=== PATIENT | female | born 2000 | race Caucasian/White ===

== ENCOUNTER 2024-09-26 14:25 | Emergency (ER) | payer OTHER, SELFPAY ==
--- OUTSIDE RECORDS SUMMARY | 2024-09-26 14:33 | XMS_ITS | Data Portability ---
Author Organization [employer] , [facility] Address [address] [place] [address] Care Team Providers Care Barometers Calibrator Name Role Phone [facility] [employer] Operator Assessment Encounter Date Assessment Date Assessment LastModified by Organization Details LastModified Time 05/02/2023 05/02/2023 Treatment for trich/Chlamydia- took stopped 2 weeks ago. Appointment 04/11- has had transportation issues. Not available 05/02/2023 17:03:04 05/31/2023 05/31/2023 Pt is here for a JAIME appointment. She is taking vitamins. She has no complaints or questions. Denies vaginal bleeding, abdominal cramps, N/V, contractions, and LOF. Denies headache, vision changes, swelling of hands or face, and epigastric pain. Reports feeling movement. Discussed Movement Counts. Discussed PTL and precautions given. There are no identifiable risk factors for pre-term labor. Reminded pt that I do not delivery babies. Recommended pt see a Delivery provider next visit. [email or web address] Not available 05/31/2023 16:30:03 Plan of Treatment Reminders Order Date Submit Date Provider Last Modified By Organization Details Last Modified Time Details Appointments None recorded. Lab parvovirus B19 igg+igm Ab, serum 2022 023 LUIS [facility], [address] [facility], [address], [place], [address], 00:21:36 torch antibody panel, serum 2022 023 [email or web address] [facility], [address], [address], [place], [address], 3 16:26:16 hhv-6 (human herpesvirus 6) antibody panel, serum 2022 023 LOR[place] [employer] [facility], [address], [address], [place], [address], 3 00:21:36 test, urine 2022 023 [facility], [address], [place], [address], 3 14:15:36 pap, LB 2022 023 [facility] [employer] [facility], [address] [place], [address], 3 17:14:47 unlisted lab - Pap reflex hold 2022 023 [facility], [address] [place], [address], 3 15:39:15 Referral maternal & medicine [facility], [address], [address], [place], [address], 3 16:59:14 Procedures None recorded. Surgeries None recorded. Imaging US, obstetric, limited 2022 023 [facility] [address], [place], [address], 3 09:16:01 US, doppler, umbilical artery velocimetry 2022 023 kbrLocated within [facility], [address], [place], [address], 3 16:51:04 US, obstetric, biophysical profile 2022 023 tam [facility], [address], [place], [address], 3 16:34:47 Medication Orders Depo-Hydraulic Jack Mechanic a 150 mg/mL intramuscul ar suspension 2022 023 [id number] [facility], [address] , [place], [address], 14:15:28 Patient TargetsNo targets recorded. Patient Instructions Encounter Date Encounter Id Patient Instructions Last Modified By Organization Details Last Modified Time 05/02/2023 [id number] learning about screening for gestational diabetes Not available 05/02/2023 19:48:47 08/25/2023 [id number] Care at Home With Your Baby: Care Instructions Not available 08/25/2023 12:43:17 control after counseling Not available 08/25/2023 12:43:17 learning about control Not available 08/25/2023 12:43:17 Reason for Referral Maternal & Medicine Re ferral for growth restriction Transfer of Care- IUGR Referring Physician: Viviana Kruse, CRISIS INTERVENTION COUNSELOR, Encounter Date: 05/31/2023 Results Created Date Observation Date Name Description Value Unit Range Abnormal Flag Note LastModifiedBy Organization Detail LastModifiedTime 05/15/2005/18/2023 GLUCO SE, GESTA HAYDEE L SCREE N (50G) -135 CUTOF F glucose, gestational screen (50g)-135 cutoff 133 mg/dL <135 normal Not Available [facility] [address], [place], [address], 05/19/2023 00:21:35 05/15/20 23 05/18/2023 PARVO VIRUS B19 ANTIB ODIES (IGG, IGM) parvovirus B19 antibody (IgG) 0.2 normal REFER ENCE RANGE : <0.9 INTER PRETI VE CRITE ANNAMARIE: <0.9 Negat tanja 0.9 - 1.1 Equiv ocal >1.1 Posit tajna IgG persi sts for years and provi pedro life- long immun ity. To diagn ose curre nt infec tion, consi princess Parvo virus B19 DNA, PCR. Not Available [address], [address], 05/19/2023 00:21:36 05/15/2005/18/2023 PARVO VIRUS B19 ANTIB ODIES (IGG, IGM) parvovirus B19 antibody (IgM) 0.1 normal REFER ENCE RANGE : <0.9 INTER PRETI VE CRITE ANNAMARIE: <0.9 Negat tanja 0.9 - 1.1 Equiv ocal >1.1 Posit tanja Resul ts from any one IgM assay shoul d not be used as a sole deter minan t of a curre nt or recen t infec tion. Becau se IgM tests can yield false posit tanja resul ts and low level s of IgM antib job may persi st for month s post infec tion, relia nce on a singl e test resul t could be misle ading . If an acute infec tion is suspe cted, consi princess obtai meagan a new speci men and submi t for both IgG and IgM testi ng in two or more weeks . To diagn ose curre nt infec tion, consi princess Parvo virus B19 DNA, PCR. Not Available [address], [address], 05/19/2023 00:21:36 05/15/2005/18/2023 HERPE SVIRU S 6 ANTIB ODIES (IGG, IGM) herpesvirus 6 Ab (IgG) 1:40 titer high Not Available [address] [place], [address], 05/19/2023 00:21:36 05/15/2005/18/2023 HERPE SVIRU S 6 ANTIB ODIES (IGG, IGM) herpesvirus 6 Ab (IgM) <1:20 titer normal Not Available [facility] [employer] [facility] [address] [place], [address], 05/19/2023 00:21:36 05/15/2005/18/2023 HERPE SVIRU S 6 ANTIB ODIES (IGG, IGM) interpretati on PAST INFECT ION normal REFER ENCE RANGE : IgG <1:10 IgM <1:20 Human Herpe sviru s 6 (HHV- 6) infec ts T-lym phocy brooke, and has been ident ified as an etiol ogic agent of exant amelie subit um. Rises in antib job titer s to HHV-6 have been detec jose angel durin g infec tion with other virus es. In seroe pidem iolog y studi es of the preva lence of expos ure using serum scree meagan dilut ions of 1:10, the detec tion of IgG antib job in a mid-l william popul ation appro aches 100%. Due to this high preva lence of HHV-6 antib job, corre latio ns of singl e IgG titer s with speci fic disea ses are of littl e clini leroy value . Evide nce of acute infec tion or react ivati on of HHV-6 is demon strat ed by a signi fican t rise or seroc onver stefania of IgG and IgM titer s. This test was devel oped and its ovidio tical perfo rmanc e jane cteri stics have been deter mined by [facility]. It has not been clear ed or appro ry by FDA. This assay has been valid ated pursu ant to the CLIA regul ation s and is used for clini leroy purpo ses. Not Available [facility] [employer] [facility] [address] [place], [address], 05/19/2023 00:21:36 08/25/2008/29/2023 THINP REP TIS PAP clinical information: normal None given Not Available [employer] [facility] [address] [place], [address], 08/29/2023 17:14:46 08/25/20 23 08/29/2023 THINP REP TIS PAP LMP: normal NONE GIVEN Not Available [address], [address], 08/29/2023 17:14:46 08/25/20 23 08/29/2023 THINP REP TIS PAP prev. Pap: normal NONE GIVEN Not Available [address], [address], 08/29/2023 17:14:46 08/25/2008/29/2023 THINP REP TIS PAP prev. BX: normal NONE GIVEN Not Available [address], [address], 08/29/2023 17:14:46 08/25/20 23 08/29/2023 THINP REP TIS PAP source: normal None given Not Available [address], [address], 08/29/2023 17:14:46 08/25/2008/29/2023 THINP REP TIS PAP statement of adequacy: normal Satis facto ry for evalu ation . Endoc ervic al/tr ansfo rmati on zone compo nent prese nt. Age and/o r menst rual statu s not provi ded Not Available [address], [address], 08/29/2023 17:14:46 08/25/20 23 08/29/2023 THINP REP TIS PAP interpretati on/result: normal Cytol ogy Resul ts: Negat tanja for intra epith elial lesio n or natalie garcia . Not Available [address], [address], 08/29/2023 17:14:46 08/25/20 23 08/29/2023 THINP REP TIS PAP comment: normal This Pap test has been evalu ated with compu sanchez techn ology . Not Available [facility] [employer] [facility] [address] [address] [place], [address], 08/29/2023 17:14:46 08/25/20 23 08/29/2023 THINP REP TIS PAP cytotechnolo gist: normal YARELI, CT( CP) CT scree meagan locat ion: [place] [address] [address] [place] [address] Not Available [facility] [address] [address] [place], [address], 08/29/2023 17:14:46 08/25/2008/29/2023 THINP REP TIS PAP comment EXPLA NATOR Y NOTE: The Pap is a scree meagan test for cervi leroy cance r. It is not a diagn ostic test and is subje ct to false negat tanja and false posit tanja resul ts. It is most relia ble when a satis facto ry sampl e, regul mary obtai errol, is submi tted with relev ant clini leroy findi ngs and histo ry, and when the Pap resul t is evalu ated along with histo bar and curre nt clini leroy infor matio n. Not Available [address], [place], [address], 08/29/2023 17:14:46 08/25/20 23 08/25/2023 pregn josesito test, urine HCG negati ve Not Available [facility] [address] [facility], [place], [address], 08/25/2023 13:23:22 03/30/20 23 03/30/2023 US, obste tric No observ ation record ed. [address], [place], [address], 03/31/2023 19:59:14 05/31/20 US, obste tric, bioph ysica l profi le No observ ation record ed. [email or web address] [facility] [address] [facility], [place], [address], 05/31/2023 16:34:50 06/01/20 23 05/31/2023 US, obste tric, limit ed No observ ation record ed. [email or web address] [address], [place], [address], 06/01/2023 14:14:28 Result Notes None recorded. Problems Name Problem SNOMED Code Status Onset Date Resolution Date Notes Provider Name and Address Organization Details Recorded Time Dispropo rtion between fetus and pelvis Completed 201602/19/2021 Back pain, in pregnanc y; Progress : Stable Added By: Minnie Cool Add to Current Problems : NO ProblemS tatus: Resolve Not Available [facility] 2 20:48:05 Gestatio n period, 16 weeks [id number] Completed 202005/18/2021 16 weeks gestatio n of pregnanc y; Progress : Stable Added By: Marlo Herrmann Add to Current Problems : NO ProblemS tatus: Resolve Not Available [facility] 2 20:48:00 Excessiv e growth affectin g manageme nt of mother 44097414 Completed 201609/02/2017 Large for Dates; Location : None Progress : Stable Added By: Kyle Bailey Add to Current Problems : YES ProblemS tatus: Resolve Not Available [facility] 2 20:48:01 Antenata l ultrasou nd finding 328131265 Completed 202002/19/2021 Encounte r for pregnanc y test, result unknown; Progress : Stable Added By: Carey Jacobs Add to Current Problems : NO ProblemS tatus: Resolve Not Available [facility] 2 20:48:00 Clinical finding Completed 201602/19/2021 state, incident al; Progress : Stable Added By: Isaiah Moody Add to Current Problems : NO ProblemS tatus: Resolve Not Available [facility] 2 20:48:02 Generali zed abdomina l pain 029657840 Completed 201607/14/2017 Abdomina l cramping ; Location : None Progress : Stable Added By: Isaiah Moody Add to Current Problems : NO ProblemS tatus: Resolve Generali zed abdomina l pain; Progress : Stable Added By: Isaiah Moody Add to Current Problems : NO ProblemS tatus: Resolve Not Available [facility] 2 20:48:03 Gestatio n period, 12 weeks 66515476 Completed 202004/14/2021 12 weeks gestatio n of pregnanc y; Progress : Stable Added By: Rodrigo Ayala Add to Current Problems : NO ProblemS tatus: Resolve Not Available [facility] 2 20:48:04 Situatio n with explicit context Completed 202004/14/2021 Supervis ion of pregnanc y with other poor reproduc tive or obstetri c history, second trimeste r; Progress : Stable Added By: Marlo Herrmann Add to Current Problems : NO ProblemS tatus: Resolve Not Available [facility] 2 20:48:01 Indicati on for care AND/OR interven tion in labor AND/OR delivery Completed 201508/20/2016 Other specifie d indicati ons for care related to labor and delivery , antepart um conditio n or complica tion; Location : None Progress : Stable Added By: Taylor Coronado Add to Current Problems : YES ProblemS tatus: Resolve Not Available [facility] 2 20:48:00 Delivery finding Completed 201508/20/2016 Other specifie d complica tions of labor and delivery ; Progress : Stable Added By: Taylor Coronado Add to Current Problems : NO ProblemS tatus: Resolve Not Available [facility] 2 20:48:04 Poor growth affectin g manageme nt 610452593 Completed 201508/20/2016 Small for dates; Location : None Progress : Stable Added By: Taylor Coronado Add to Current Problems : YES ProblemS tatus: Resolve Not Available [facility] 2 20:48:01 Uterine size for dates discrepa ncy Completed 201509/02/2017 Uterine size-akira e discrepa ncy, third trimeste r; Progress : Stable Added By: Kyle Bailey Add to Current Problems : NO ProblemS tatus: Resolve Not Available [facility] 20:48:01 Pregnanc y 60564633 Completed 202011/26/2022 Emmie mishra, [facility] [employer] 3 12:22:07 Low lying placenta 532733932 Completed resolved 09/21 Carey Jacobs CNM [facility] [place], [address] , [facility] 3 17:54:08 Marginal insertio n of umbilica l cord 71649129 Completed 09/21 growth at 41.3%, EFW 3336 grams, 7-6; VERONICA 15.5cm Carey Jacobs CNM [address] [place] [address], [address] , [facility] 3 17:54:08 Antenata l care: poor antenata l attender 215187984 Completed O+/RI Has not been seen since 27 weeks Carey Jacobs CNM [address] [place] [address], [address] , [facility] 3 17:54:08 Past pregnanc y history of gestatio nal diabetes mellitus 678574701 Completed HgbA1c 4.8 on intake. GTT 123 Carey Jacobs CNM [address] [place], [address] , [facility] 3 17:54:08 Pregnanc y 93930907 Completed 202208/25/2023 Emmie mishra, [facility] 3 12:22:06 Insuffic ient care [id number] 09 Completed 2022 [facility] ed to come regularl y educated about risk factors. Emmie mishra, [facility] 3 12:22:04 growth restrict ion 06607279 Completed 5%ile on 26 wk US with suspecte d club foot, MFM case referral done Emmie mishra, [facility] 3 12:22:04 Trichomo nal vulvovag initis 39299217 Completed Emmie mishra, [facility] 3 12:22:04 Chlamydi al infectio n 071270819 Completed will need LINDSAY followin g tx Emmie mishra, [facility] 3 12:22:04 Pregnanc y with other medical conditio n Completed 201602/19/2021 Incident al pregnanc y; Location : None Severity : Moderate Progress : Stable Added By: Isaiah Moody Add to Current Problems : YES ProblemS tatus: Current Incident al pregnanc y; Severity : Moderate Progress : Stable Added By: Isaiah Moody Add to Current Problems : NO ProblemS tatus: Resolve Not Available [facility] 1 01:27:09 Gestatio n period, 8 weeks 30974313 Completed 202004/14/2021 8 weeks gestatio n of pregnanc y; Progress : Stable Added By: Liz Manuel Add to Current Problems : NO ProblemS tatus: Resolve Not Available [facility] 2 20:48:04 Problem Notes None recorded. Procedures Surgical History Date Name Laterality Status Provider Name and Address Organization Details Recorded Time 10/31/19 24 Suture/Staple removal cancelled Merna Solis MD [address] [place] [address], [address], [facility] [employer] [facility] 10/30/2023 19:23:25 10/18/19 24 Removal of fallopian tube completed Merna Solis MD [address] [place] [address], [address], [facility] [facility] 10/30/2023 19:24:25 08/25/20 23 Depo Provera Injection completed Merna Solis MD [address] [place] [address], [address], [facility] 08/25/2023 14:15:30 08/25/20 Date of Last Pap Smear completed Merna Solis MD [address] [facility], [place], [address], [facility] 08/30/2023 10:28:12 Appendectomy completed Karenomer Das [facility] 09/21/2021 15:08:58 Imaging Results Imaging Date Name Status LastModified by Organiz ation Details LastModified Time 03/30/2023 US, obstetric completed [address], [place], [address], 03/31/2023 19:59:14 05/31/2023 US, obstetric, biophysical profile completed [email or web address] [facility] [address] [place], [address], 05/31/2023 16:34:50 05/31/2023 US, obstetric, limited completed bnotzke [address], [place], [address], 06/01/2023 14:14:28 Procedure Notes None recorded. Medical Equipment None Reported. Allergies Allergen ID Allergen Name Allergen Category Reaction Reaction Severity Criticality Documentation Date Start Date Code Code System Note Provider Name and Address Organization Details Recorded Time 925724 coconut extract food,medi cation Not available Not available Not available 08/25/2023 96355 48 RxNorm Emmie mishra, [facility] IV 12:22:41 Medications Name Sig Start Date Stop Date Status Note LastModified by Organization Details LastModified Time doxycycli ne hyclate 100 mg capsule active Not Available Not Available Not Available clindamyc in HCl 300 mg capsule 12/20 completed Not Available Not Available Not Available ibuprofen 800 mg tablet active Not Available Not Available Not Available Procardia XL 30 mg tablet,ex tended release Take 1 tablet(s ) by mouth daily 11/01 completed Procardi a XL 30mg Tablets, Extended Release RxNorm: 005003 Allow Substitu tion: True Refill Denied: No Not Available Not Available Not Available hydrocodo ne 5 mg-acetam inophen 325 mg tablet active Not Available Not Available Not Available metronida zole 0.75 % (37.5 mg/5 gram) vaginal gel 12/20 completed Not Available Not Available Not Available metronida zole 500 mg tablet Take 1 tablet every 12 hours by oral route. 08/25 completed Not Available Not Available Not Available Reglan 10 mg tablet 1 tabs PO QID (before each meal & HS) 07/09 completed Reglan 10mg Tablet RxNorm: 594555 Allow Substitu tion: True Refill Denied: No Not Available Not Available Not Available Macrobid 100 mg capsule Take 1 capsule( s) by mouth bid for 10 days 08/13 completed Macrobid 100mg Capsules RxNorm: 699463 Allow Substitu tion: True Refill Denied: No Not Available Not Available Not Available Vitamin tablet Take 1 tablet by mouth daily. 01/25 completed Multivit britton Tablet Allow Substitu tion: True Refill Denied: No Not Available Not Available Not Available Zofran 4 mg tablet take 1 -2 tabs po every 8 hours as needed for nausea 05/19 completed Zofran 4 mg oral tablet RxNorm: 187727 Allow Substitu tion: True Refill Denied: No Edited by: Marlo Art ) on 05/19/20 Stopped by: Marlo Art ) on 05/19/20 21 Not Available Not Available Not Available oxycodone -acetamin ophen 5 mg-325 mg tablet 09/21 completed Not Available Not Available Not Available Mapap (acetamin ophen) 500 mg capsule 08/25 completed Not Available Not Available Not Available ferrous sulfate 325 mg (65 mg iron) tablet 08/25 completed Not Available Not Available Not Available docusate sodium 100 mg capsule active Not Available Not Available Not Available pyridoxin e (vitamin B6) 50 mg tablet Take 1 tablet every day by oral route for 30 days. 02/20 completed Not Available Not Available Not Available ibuprofen 600 mg tablet 08/25 completed Not Available Not Available Not Available ondansetr on 4 mg disintegr ating tablet Place 1 tablet every 6-8 hours by translin gual route as needed for 5 days. 02/20 completed Not Available Not Available Not Available medroxypr ogesteron e 150 mg/mL intramusc ular suspensio n Inject 1 mL every 3 months by intramus cular route. active Not Available Not Available No t Available naproxen 500 mg tablet 12/20 completed Not Available Not Available Not Available azithromy grisel 1 gram oral packet Take 1 packet every day by oral route. 03/30 completed Not Available Not Available Not Available 28 mg-800 mcg tablet take once per day 08/25 completed 28-800 mg-mcg oral tablet Allow Substitu tion: True Refill Denied: No Edited by: Jose Elias Smith) on 03/17/20 21 Stopped by: Jose Elias Smith) on Not Available Not Available Not Available Ebonie (PF) 275 mg/1.1 mL subcutane ous auto-inje ctor inject 1.1 millilit ers (275 mg) by subcutan eous route once weekly begin between weeks 16 and 20; continue to week 37 of gestatio n or delivery 09/21 completed [place] (PF) 275 mg/1.1 mL subcutan eous Auto-Inj cielo RxNorm: 7409307 Allow Substitu tion: True Refill Denied: No Edited by: Vneus Cabello) on 02/26/20 21 Stopped by: Venus Cabello) on Not Available Not Available Not Available M- Plus 27 mg iron-1 mg tablet 09/21 completed Not Available Not Available Not Available Vitals Date Recorded Body height Body mass index (BMI) Systolic blood pressure Diastolic blood pressure Provider Name and Address Organization Details Last Updated DateTime 03/30/2023 154.94 cm 33.3 kg/m2 110 mm[Hg] 70 mm[Hg] Janis Banks [place] [facility] 03/30/2023 11:41:20 Date Recorded Body weight Provider Name an d Address Organization Details Last Updated DateTime 03/30/2023 77887.64091 g Zara Griffin MD [facility] [place], [address], [facility] 03/30/2023 12:24:47 Date Recorded Body height Body mass index (BMI) Body weight Body temperature Systolic blood pressure Diastolic blood pressure Provider Name and Address Organization Details Last Updated DateTime 154.94 cm 33.3 kg/m2 39672.2 6 g 98.6 [degF] 120 mm[Hg] 72 mm[Hg] Isa Anuel [facility] 13:02:07 Date Recorded Body height Body mass index (BMI) Body temperature Systolic blood pressure Diastolic blood pressure Provider Name and Address Organization Details Last Updated DateTime 04/07/2023 154.94 cm 33.7 kg/m2 97.4 [degF] 112 mm[Hg] 64 mm[Hg] Анна Trujillo [place] [facility] 11:35:10 Date Recorded Body weight Provider Name an d Address Organization Details Last Updated DateTime 04/07/2023 43185.464732 g Merna Solis MD [facility] [place], [address], [place] [facility] 04/07/2023 11:47:17 Date Recorded Body height Body mass index (BMI) Systolic blood pressure Diastolic blood pressure Provider Name and Address Organization Details Last Updated DateTime 05/02/2023 154.94 cm 33.3 kg/m2 110 mm[Hg] 60 mm[Hg] Janis Banks [place] [facility] 05/02/2023 16:55:04 Date Recorded Body weight Provider Name an d Address Organization Details Last Updated DateTime 05/02/2023 99206.81805 g EFREM HANKS [facility] [place], [address], [place] [facility] 05/02/2023 17:10:12 Date Recorded Body height Body mass index (BMI) Body weight Body temperature Systolic blood pressure Diastolic blood pressure Provider Name and Address Organization Details Last Updated DateTime 3 154.94 cm 33.8 kg/m2 59409.0 3423 g 97 [degF] 112 mm[Hg] 60 mm[Hg] Darian Gonzalez [employer] [facility] 3 16:19:23 Date Recorded Body height Body mass index (BMI) Body weight Systolic blood pressure Diastolic blood pressure Provider Name and Address Organization Details Last Updated DateTime 08/25/2023 154.94 cm 33.4 kg/m2 90043.85 g 122 mm[Hg] 72 mm[Hg] Emmie Hall [employer] [facility] 3 12:29:20 Social History Question Answer Notes LastModified by [employer] Details LastModified Time Tobacco Smoking Status Current Every Day Smoker Karen mishra, [employer] [facility] 09/21/2021 15:08:34 What Is Your Level Of Alcohol Consumption? None Information not available 09/21/2021 Are You Blind Or Do You Have Difficulty Seeing? No Information not available 03/16/2023 Are You Deaf Or Do You Have Serious Difficulty Hearing? No [email or web address] Information not available 03/16/2023 What Type Of Diet Are You Following? REGULAR Information not available 03/30/2023 How Many Children Do You Have? 4 Information not available 03/30/2023 What Is Your Relationship Status? Single Information not available 09/21/2021 Are You Sexually Active? Yes Information not available 09/21/2021 How Much Tobacco Do You Smoke? 0.25 PPD Information not available 03/30/2023 Do You Use Any Illicit Or Recreational Drugs? No [email or web address] Information not available 03/16/2023 Do You Or Have You Ever Used Any Other Forms Of Tobacco Or Nicotine? No [email or web address] Information not available 03/16/2023 Sex: Female Functional Status Question Answer Note LastModified by [email or web address] Details LastModified Time What is your exercise level? Occasional Information not available 03/30/2023 Mental Status None recorded. Family History Relationship Description Onset Age of this Age Resolved Age Notes LastModified by Organization Details LastModified Time Father No current problems or disability Not available 04/2021 15:08:17 Mother No current problems or disability Not available 04/2021 15:08:17 Medical History Condition Response Other Cancer N High Blood Pressure N Colon Cancer N Cytomegalovirus N Hyperthyroidism N MRSA N Blood Transfusion N Herpes (HSV) N Breast Cancer N Lung Cancer N Depression N Hypothyroidism N Incontinence N Panic Attacks N Neurological Disorder N Deep Vein Thrombosis N Anxiety Disorder N Autoimmune disease N Arthritis N Shingles N Tuberculosis/Positive PPD N Polycystic Ovarian Syndrome N Cervical Cancer N Chlamydia N Hematuria N Stroke N Varicosities N Seasonal allergies N Crohn's Disease N Alzheimer's/Dementia N COPD/Emphysema N Endometriosis N HPV/Genital Warts N IBS (Irritable Bowel Syndrome) N History of Abnormal Pap N High Cholesterol N Liver Disease N Kidney Infection N Fibromyalgia N Ulcer N Kidney Disease N HIV N Gallbladder disease N Von Willebrand disease N Sickle Cell Disease/Trait N ADD/ADHD N Eating Disorder N Diabetes Mellitus (non-insulin dependent ) N Anemia N Ovarian Problems N Multiple Sclerosis N Gonorrhea N Frequent Urinary Tract infections N Osteopenia N Headaches/migraines N GERD (reflux) N Ovarian Cancer N Diabetes (insulin dependent) N Seizures/Epilepsy N Fibroids N Asthma N Heart Attack N Endometrial Cancer N Lupus N Rubella N Blood Clotting Disorder N Bipolar Disorder N Diabetes Mellitus (during ) N Ulcerative Colitis N Hepatitis N Heart Disease N Pulmonary Embolism N RPR N Chicken Pox N Osteoporosis N Gynecological History Statement/Question Response Date of Last Colonoscopy Date of last HPV Date of LMP 08/16/2023 Most Recent Bone Density HPV Vaccine N Date of Last Pap Smear 08/25/2023 Most Recent Mammogram Current Control Method Sterilizati on Age at Menarche 12 Obstetrics History GPAL:G 5 P 3 1 0 4 Type Value Full Term 3 Premature 1 Living 4 Total 5 Past Encounters Encounter ID Performer Location Encounter Start Date Encounter Closed Date Diagnosis/Indication Diagnosis SNOMED-CT Code Diagnosis ICD10 Code [id number] Dariana Johnston CNM [facility] [address] [place] [address] 09/21/2021 14:51:18 10/06/2021 13:50:22 Marginal insertion of umbilical cord 66276363 O43.129 Insufficie nt care 5761426626 109 O09.33 Low lying placenta 58380 2007 O44.43 [id number] JOSE BELL MD [facility] h [address] [place] [address] 12/20/2022 13:44:10 12/21/2022 07:03:10 test positive 163992367 Z32.01 Gestation period, 12 weeks 12789526 Z3A.12 Maternal t obacco use in 9059091104 73677 O99.331 screening 2437 72987 Z36.0 Carrier de tection, molecular genetics 5284781 Z14.8 Morning sickness 0048321 6 O21.9 [id number] Zara Griffin MD [facility] h [address] [place] [address] 02/20/2023 14:02:59 02/20/2023 15:21:16 Routine care 168125681 Z34.81 Alpha-feto protein test - 212767270 Z36.1 Venereal d isease screening 075954377 Z11.3 [id number] Zara Griffin MD [facility] h [address] [place] [address] 03/30/2023 11:20:11 03/30/2023 17:16:17 Gestation period, 26 weeks 24738090 Z3A.26 grow th restriction 70193439 O36.5999 [id number] Merna Solis MD [facility] [address] [place] [address] 04/07/2023 11:24:18 04/07/2023 15:07:41 growth restriction 58136072 O36.5931 Gestation period, 27 weeks 65610416 Z3A.27 Routine an tenatal care 858794922 Z34.83 [id number] EFREM ROME [facility] [address] [place] [address] 05/02/2023 16:41:10 05/03/2023 09:24:24 Routine care 971816974 Z34.83 grow th restriction 84245685 O36.5931 Gestation period, 30 weeks 19020317 Z3A.30 [id number] JASPREET HOBBS-BC [facility] [address] [place] [address] 05/31/2023 15:04:26 06/01/2023 13:03:36 growth restriction 34146979 O36.5999 High risk 4720 0007 O09.93 Gestation period, 28 weeks 20954171 Z3A.28 [id number] Merna Solis MD [facility] [address] [place] [address] 08/25/2023 12:14:16 08/25/2023 15:56:58 Screening for malignant neoplasm of cervix 205623827 Z12.4 Surveillan ce of contraception 876812888 Z30.40 Depression screening 171 974158 Z13.31 state 1349998 1 Z39.2 Initiation of depot contraception done 0374125466 31283 Z30.013 Health Concerns Section Related Observation LastModified by Organization Detai ls LastModified Time None Recorded Concern Status LastModified by Organization Details LastModified Time None Recorded Advance Directives Directive None Recorded Payers Encounter Date Sequence Insurance Name Policy Number Policy Keith Covered Member ID Keith Member ID Guarantor Name 03/30/2023 1 [employer] [place] 2020 (MEDICAID REPLACEMENT - HMO) Rebeca Fernandez [id number] Rebeca Fernandez 04/07/2023 1 [employer] [place] REPLAC[place] - HMO) Rebeca Fernandez [id number] Rebeca Fernandez 05/02/2023 1 [employer] [place]AC[place] - HMO) Rebeca Fernandez [id number] Rebeca Fernandez 05/31/2023 1 [employer] [place] REPLAC[place] - HMO) Rebeca Fernandez [id number] Rebeca Fernandez 08/25/2023 1 [employer] BETTER [facility] OF [facility] ON OR AFTER 09/15/2020 (MEDICAID REPLACEMENT - HMO) Rebecaboris [place] Jim [id number] Rebecaboris [place] Jim Notes Date Note Type Note Provider Name and Address Organization Details Recorded Time 03/30/2023 text/html Rebeca is her e today for a routine OB visit. She is currently at 26.2 weeks gestation. She has no complaints or questions. She is taking vitamins. She has felt movement. She denies the presence of vaginal bleed, leaking fluid, abdominal cramps, nausea, vomiting. Zara Griffin MD [address] [place] [address], [phone], [employer] IV 03/30/2023 12:27:30 04/07/2023 text/html Rebeca is her e today for a routine OB visit. She is currently at 27.3_ weeks gestation. She has no complaints or questions. She is taking vitamins. She has felt movement. She denies the presence of vaginal bleed, leaking fluid, abdominal cramps, nausea, vomiting. Merna Solis MD [address] [place] [address], [phone], [employer] IV 04/07/2023 21:27:39 05/02/2023 text/html Rebeca is her e today for a routine OB visit. She is currently at 31.0 weeks gestation. She has no complaints or questions. She is taking vitamins. She has felt movement. She denies the presence of vaginal bleed, leaking fluid, abdominal cramps, nausea, vomiting. EFREM ROME [address] [place] [address], [phone], [employer] IV 05/02/2023 19:48:50 05/31/2023 text/html OB ProblemReport ed bypatient.Associated Symptoms:no abdominal pain; no cramping; no contractions; normal movement; no bleeding; no ROM; no vaginal discharge; no vaginal/vulvar itching or irritation; no edema; no visual changes; no headache; no dizziness; no breathlessness Pt here for JAIME in third trimester. +FM, denies VB, LOF. Denies PARSON, vision changes, RUQ pain, contractions DIONNA HOBBS [address] [place], [address], [employer] 06/01/2023 13:19:21 08/25/2023 text/html VisitReported bypatient.Onset/Timin g:date of delivery: (06-22-23) Quality: Context:feeding choice: bottle Associated Symptoms:no abnormal bleeding; no vaginal discharge Contraception Plan:permanent sterilization Tubal Consent Signed Merna Solis MD [facility] [place], [address], [facility] [employer] 08/25/2023 14:16:44 OBGyn Episode Ob Episode Information Episode Created Date Number of Fetuses Patient Bloodtype Patient rh Status Prepregnancy Weight lbs Domestic Partner Domestic Partner Phone Father Name Veterinary Livestock Inspector Status 09/21/20 21 1 O Positive CLOSED Fetus Data First Name Last Name Admitted to NICU Weight (g) Sex Living Outcome Pediatric Complications Fetus ID Race Codes Race Delivery Type 3090.09 55 F true Full Term [id number] Problems Problem Notes Problem Name Start Date End Date Resolution Snomed Code Not e Low lying placenta 853500177 r esolved 09/21 Marginal insertion of umbilical cord 42235770 09/21 growth a t 41.3%, EFW 3336 grams, 7-6; VERONICA 15.5cm care: poor attender 793194486 O+/RI Has not been seen since 27 weeks Past history of gestational diabetes mellitus 213736336 HgbA1c 4.8 on intake. GTT 123 Todd Calculation TODD Calculation Method Initial Todd Date Initial Exam Date Initial Exam Provider Initial Ultrasound Date Last Menstrual Period Date Ultra Sound Weeks Gestation Conception by IVF Embryo Age at Transfer Date of Transfer 09/28/20 21 09/21/20 21 02/19/2021 8 Eighteen To Twenty Week Todd Update Ultra Sound Date Fundal Height At Umbil Quickening Date Ultra Sound Latest Weeks Gestation Final Todd Confirmed By Final Todd Confirmed Date Final Todd Date Ultra Sound Latest Days Gestation 0 0 Pre- Flowsheet Flowsheet Date 09/21/2021 Odell Score Blood Edema Fundus Height Fundus Units Glucose Ketones Leukocytes Nitrite Labor Signs Protein Cervic Dilation Cervic Effacement Cervic Station none 39 Type Weight in lbs Pre/Post Dialysis Refused Weight 182.643416576269 BP Diastolic BP Location Tested BP Systolic BP Type 78 132 Fetus Heart Rate Present A 149 Fetus Movement A Yes Comments Menstrual History Last Menstrual Date Menses Monthly On Bcp Conception Prior Menses Frequency Hcg Plus Date Menarche Onset Age Genetic Screening And Infection History Question Response Note Recent Travel History Outside of Country false Cystic Fibrosis false Any Other Genetic History false Hi Disease false Other Infection History false Thalassemia (Tristanian, Armenian, Mediterranean, Or Background): MCV < 80 false Patient Or Baby's Father Had A Child With Defects Not Listed Above false Live With Someone With TB Or Exposed To TB false Patient's Age Will Be 35 Years Or Older At Estim ated Date of Delivery false Recurrent Loss, Or A Stillbirth false Hemoglobinopathy Or Carrier false Patient Or Partner Has History Of Genital Herpes false Intellectual Disability/Autism false Maternal Metabolic Disorder (eg, Type 1 Diabetes , PKU) false History of Hepatitis false Shahriar-Sachs (eg, Sikh, Cajun, Kuwaiti-Lebanese) f alse History Of STD, Gonorrhea, Chlamydia, HPV, Syphi lis false Prior GBS-infected child false History of HIV false Personal or Family History o f Neural Tube Defect (Meningomyelocele, Spina Bifida, Or Anencephaly) false Hemophilia Or Other Blood Disorders false Mental Retardation/Autism false Franklin's Chorea false If Yes, Was Person Tested For Fragile X? false Other Inherited Genetic Or Chromosomal Disorder false If Yes, Agent(s) And Strength/Dosage false Sickle Cell Disease Or Trait () false Personal or Family History of Congenital Heart D efect false Rash Or Viral Illness Since Last Menstrual Perio d false Muscular Dystrophy false Medications (including Suppl ements, Vitamins, Herbs, OTC Drugs), Illicit/Recreational Drugs, Alcohol false Other Structural Defect false Down Syndrome false Delivery Information Delivery Date Delivery Type Labor Anesthesia Weeks Gestation Incision Type Labor Labor Length Hrs Delivered By Post Complications Tubal Sterilization Discharge Date Comments 1 Sponta neous 39.3 Discharge Information Feeding Method Contraceptive Method Maternal HG B and HCT Levels Ob Episode Information Episode Created Date Number of Fetuses Patient Bloodtype Patient rh Status Prepregnancy Weight lbs Domestic Partner Domestic Partner Phone Father Name Veterinary Livestock Inspector Status 12/31/19 22 1 CLOSED Fetus Data First Name Last Name Admitted to NICU Weight (g) Sex Living Outcome Pediatric Complications Fetus ID Race Codes Race Delivery Type 1927.76 6 M [id number] Todd Calculation TODD Calculation Method Initial Todd Date Initial Exam Date Initial Exam Provider Initial Ultrasound Date Last Menstrual Period Date Ultra Sound Weeks Gestation Conception by IVF Embryo Age at Transfer Date of Transfer 0 Eighteen To Twenty Week Todd Update Ultra Sound Date Fundal Height At Umbil Quickening Date Ultra Sound Latest Weeks Gestation Final Todd Confirmed By Final Todd Confirmed Date Final Todd Date Ultra Sound Latest Days Gestation 0 0 Menstrual History Last Menstrual Date Menses Monthly On Bcp Conception Prior Menses Frequency Hcg Plus Date Menarche Onset Age Delivery Information Delivery Date Delivery Type Labor Anesthesia Weeks Gestation Incision Type Labor Labor Length Hrs Delivered By Post Complications Tubal Sterilization Discharge Date Comments 6 33 true Discharge Information Feeding Method Contraceptive Method Maternal HG B and HCT Levels Ob Episode Information Episode Created Date Number of Fetuses Patient Bloodtype Patient rh Status Prepregnancy Weight lbs Domestic Partner Domestic Partner Phone Father Name Veterinary Livestock Inspector Status 12/31/19 22 1 CLOSED Fetus Data First Name Last Name Admitted to NICU Weight (g) Sex Living Outcome Pediatric Complications Fetus ID Race Codes Race Delivery Type 2919.99 85 F [id number] Todd Calculation TODD Calculation Method Initial Todd Date Initial Exam Date Initial Exam Provider Initial Ultrasound Date Last Menstrual Period Date Ultra Sound Weeks Gestation Conception by IVF Embryo Age at Transfer Date of Transfer 0 Eighteen To Twenty Week Todd Update Ultra Sound Date Fundal Height At Umbil Quickening Date Ultra Sound Latest Weeks Gestation Final Todd Confirmed By Final Todd Confirmed Date Final Todd Date Ultra Sound Latest Days Gestation 0 0 Menstrual History Last Menstrual Date Menses Monthly On Bcp Conception Prior Menses Frequency Hcg Plus Date Menarche Onset Age Delivery Information Delivery Date Delivery Type Labor Anesthesia Weeks Gestation Incision Type Labor Labor Length Hrs Delivered By Post Complications Tubal Sterilization Discharge Date Comments 7 39 false Discharge Information Feeding Method Contraceptive Method Maternal HG B and HCT Levels Ob Episode Information Episode Created Date Number of Fetuses Patient Bloodtype Patient rh Status Prepregnancy Weight lbs Domestic Partner Domestic Partner Phone Father Name Veterinary Livestock Inspector Status 12/31/19 22 1 CLOSED Fetus Data First Name Last Name Admitted to NICU Weight (g) Sex Living Outcome Pediatric Complications Fetus ID Race Codes Race Delivery Type 2267.96 M [id number] Todd Calculation TODD Calculation Method Initial Todd Date Initial Exam Date Initial Exam Provider Initial Ultrasound Date Last Menstrual Period Date Ultra Sound Weeks Gestation Conception by IVF Embryo Age at Transfer Date of Transfer 0 Eighteen To Twenty Week Todd Update Ultra Sound Date Fundal Height At Umbil Quickening Date Ultra Sound Latest Weeks Gestation Final Todd Confirmed By Final Todd Confirmed Date Final Todd Date Ultra Sound Latest Days Gestation 0 0 Menstrual History Last Menstrual Date Menses Monthly On Bcp Conception Prior Menses Frequency Hcg Plus Date Menarche Onset Age Delivery Information Delivery Date Delivery Type Labor Anesthesia Weeks Gestation Incision Type Labor Labor Length Hrs Delivered By Post Complications Tubal Sterilization Discharge Date Comments 8 None 40 false 18 IOL Discharge Information Feeding Method Contraceptive Method Maternal HG B and HCT Levels Ob Episode Information Episode Created Date Number of Fetuses Patient Bloodtype Patient rh Status Prepregnancy Weight lbs Domestic Partner Domestic Partner Phone Father Name Veterinary Livestock Inspector Status 02/04/20 23 1 O Positive CLOSED Fetus Data First Name Last Name Admitted to NICU Weight (g) Sex Living Outcome Pediatric Complications Fetus ID Race Codes Race Delivery Type Nena 2608.15 4 F [id number] Problems Problem Notes Problem Name Start Date End Date Resolution Snomed Code Not e Insufficient care 02/20/2023 [id number] encouraged to come regularly educated about risk factors. Trichomonal vulvovaginitis 52310762 Chlamydial infection 864635457 will need LINDSAY following tx growth restriction 79881844 5%ile on 26 wk US with suspected club foot, MFM case referral done Todd Calculation TODD Calculation Method Initial Todd Date Initial Exam Date Initial Exam Provider Initial Ultrasound Date Last Menstrual Period Date Ultra Sound Weeks Gestation Conception by IVF Embryo Age at Transfer Date of Transfer 07/04/20 23 02/04/20 23 12/20/2022 12 Eighteen To Twenty Week Todd Update Ultra Sound Date Fundal Height At Umbil Quickening Date Ultra Sound Latest Weeks Gestation Final Todd Confirmed By Final Todd Confirmed Date Final Todd Date Ultra Sound Latest Days Gestation 0 0 Pre- Flowsheet Flowsheet Date 02/20/2023 Odell Score Blood Edema Fundus Height Fundus Units Glucose Ketones Leukocytes Nitrite Labor Signs Protein Cervic Dilation Cervic Effacement Cervic Station 21 none neg Type Weight in lbs Pre/Post Dialysis Refused With clothes 179.883201006375 BP Diastolic BP Location Tested BP Systolic BP Type 64 112 sitting Fetus Heart Rate Present A 138 Fetus Movement Comments Initial OB Flowsheet Date 03/30/2023 Odell Score Blood Edema Fundus Height Fundus Units Glucose Ketones Leukocytes Nitrite Labor Signs Protein Cervic Dilation Cervic Effacement Cervic Station none 24 cm Type Weight in lbs Pre/Post Dialysis Refused With clothes 176.219715810280 BP Diastolic BP Location Tested BP Systolic BP Type 70 110 Fetus Heart Rate Present A 143 Fetus Movement A Yes Comments Reports good movement, no Leakage of fluids no vaginal bleeding. labor precautions given. FM counts discussed. F/u in L&D if experiencing decreased movement, leaking fluid, 4 or more contractions in 1 hour not relieved by rest and fluids, or regular uterine contractions increasing in frequency and/or intensity.need referral to MFM for IUGR at 26 week case sent, IUGR blood work sent, [place] test negativeI strongly suggested her to quit cigarette and eat healthy choices. 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 Will need NST BPP /cord doppler weekly at 28 weeks. Flowsheet Date 04/07/2023 Odell Score Blood Edema Fundus Height Fundus Units Glucose Ketones Leukocytes Nitrite Labor Signs Protein Cervic Dilation Cervic Effacement Cervic Station none none Type Weight in lbs Pre/Post Dialysis Refused With clothes 178.237218936573 BP Diastolic BP Location Tested BP Systolic BP Type 64 L arm 112 sitting Fetus Heart Rate Present A 135 Fetus Movement A Yes Comments Discussed u/s findings of IU GR, possible clubbed foot. Patient has a follow up with MFM next week. She will need to return in 2 weeks for 3rd trimester labs. She is too early today. Encouraged smoking cessation. Has not yet completed treatment for trich and chlamydia. Flowsheet Date 05/02/2023 Odell Score Blood Edema Fundus Height Fundus Units Glucose Ketones Leukocytes Nitrite Labor Signs Protein Cervic Dilation Cervic Effacement Cervic Station none 28.5 cm none Type Weight in lbs Pre/Post Dialysis Refused With clothes 176.556529096025 BP Diastolic BP Location Tested BP Systolic BP Type 60 110 Fetus Heart Rate Present A 144 Present Fetus Movement A Yes Comments No OB complaints today. Lizett ent states that she has been having transportation issues and has not seen MFM yet. Has missed last 2 appointments on 04/14 & 04/21. Is scheduled with them on 05/11. Pt is working on getting [employer] to help with transportation. Patient's appointment was late for 1 hr gtt and 28 week labs, patient will return Monday or this week to complete labs. Stressed importance of coming back for 3rd trimester labs, pt voices understanding. Flowsheet Date 05/31/2023 Odell Score Blood Edema Fundus Height Fundus Units Glucose Ketones Leukocytes Nitrite Labor Signs Protein Cervic Dilation Cervic Effacement Cervic Station none none neg Type Weight in lbs Pre/Post Dialysis Refused With clothes 179.541741833682 BP Diastolic BP Location Tested BP Systolic BP Type 60 112 sitting Fetus Heart Rate Present A 142 Present Fetus Movement A Yes Comments Pt has not been going to MFM appointments. Discussed importance and encouraged follow up with MFM. Pt thought this was located in [facility]- she will call them and make an appointment. BPP 05/23, dopplers WNL, growth 3%tile, VERONICA 12.42. Pt passed 1 hour gct. I do not see the rest of her 28w labs that were supposed to be done at [facility] with the 1 hour gct, will send a message to lab to confirm they were done. No OB complaints. Flowsheet Date 08/25/2023 Odell Score Blood Edema Fundus Height Fundus Units Glucose Ketones Leukocytes Nitrite Labor Signs Protein Cervic Dilation Cervic Effacement Cervic Station Type Weight in lbs Pre/Post Dialysis Refused Weight 177.073476192488 BP Diastolic BP Location Tested BP Systolic BP Type 72 122 Fetus Heart Rate Present Fetus Movement Comments Menstrual History Last Menstrual Date Menses Monthly On Bcp Conception Prior Menses Frequency Hcg Plus Date Menarche Onset Age Genetic Screening And Infection History Question Response Note Recent Travel History Outside of Country false Cystic Fibrosis false Any Other Genetic History false Hi Disease false Other Infection History false Thalassemia (Tristanian, Armenian, Mediterranean, Or Background): MCV < 80 false Patient Or Baby's Father Had A Child With Defects Not Listed Above false Live With Someone With TB Or Exposed To TB false Patient's Age Will Be 35 Yea rs Or Older At Estimated Date of Delivery false Recurrent Loss, Or A Stillbirth false Hemoglobinopathy Or Carrier false Patient Or Partner Has History Of Genital Herpes false Intellectual Disability/Autism false Maternal Metabolic Disorder (eg, Type 1 Diabetes , PKU) false History of Hepatitis false Shahriar-Sachs (eg, Sikh, Cajun, Kuwaiti-Lebanese) f alse History Of STD, Gonorrhea, Chlamydia, HPV, Syphi lis true + Chlamydia Prior GBS-infected child false History of HIV false Personal or Family History o f Neural Tube Defect (Meningomyelocele, Spina Bifida, Or Anencephaly) false Hemophilia Or Other Blood Disorders false Mental Retardation/Autism false Franklin's Chorea false If Yes, Was Person Tested For Fragile X? false Other Inherited Genetic Or Chromosomal Disorder false Sickle Cell Disease Or Trait () false Personal or Family History of Congenital Heart D efect false Rash Or Viral Illness Since Last Menstrual Perio d false Muscular Dystrophy false Medications (including Suppl ements, Vitamins, Herbs, OTC Drugs), Illicit/Recreational Drugs, Alcohol false Other Structural Defect false Down Syndrome false Delivery Information Delivery Date Delivery Type Labor Anesthesia Weeks Gestation Incision Type Labor Labor Length Hrs Delivered By Post Complications Tubal Sterilization Discharge Date Comments 3 [facility] idural 38.2 [place] Discharge Information Feeding Method Contraceptive Method Maternal HG B and HCT Levels
[2024-09-26 15:00] VITALS: BP 132/68; PULSE 77; RESP 15; TEMP 36.3; O2SAT 98
[2024-09-26 15:14] LABS: EDCOVIDSCREEN Negative (Negative); EDINFLUASCREEN Negative (Negative); EDINFLUBSCREEN Negative (Negative); EDSTREPNEGPOS1 Positive (Negative)
--- NOTE | 2024-09-26 15:24 | ED_ITS ---
HPI - URI/Sore Throat General Chief Complaint: Upper Respiratory Infection Stated Complaint: Sore Throat Time Seen by Provider: 09/26/24 15:15 Source: patient, RN notes reviewed and old records reviewed Mode of arrival: ambulatory Limitations: no limitations History of Present Illness HPI Narrative: 24 year old female presents to [facility] care with complaints of sore throat since yesterday morning. Patient states that her looked at her throat and told her that her tonsils were red and almost touching. Her daughter is in the ICU and was told she can't come to see her till she gets check out. Patient reports that she has been using cough drops to soothe her throat reports painful swallowing. MD elicited complaint: cough and sore throat Onset (ago): day(s) (day 2 of symptoms) Pain scale (0-10): 6 Treatments prior to arrival: other (cough drops) Related Data Allergies Allergy/AdvReac Type Severity Reaction Status Date / Time No Known Allergies Allergy Verified 09/26/24 14:55 Review of Systems Review of Systems: CONSTITUTIONAL:Reports malaise, no chills, sweats, or fever. EYES: Denies visual changes, redness, or discharge. ENT: Reports rhinorrhea, congestion,no sinus pain, no otalgia and positive for sore throat. CARDIOVASCULAR: Denies chest pain, palpitations, or edema. RESPIRATORY: Reports no cough.? Denies dyspnea. GASTROINTESTINAL: Denies abdominal pain, nausea, vomiting, diarrhea SKIN: Denies rash or itching. MUSCULOSKELETAL: Denies myalgia. NEUROLOGIC: Denies headache. All systems reviewed & are unremarkable except as noted in HPI and below PMFSH Social History Social History (Updated 09/28/24 @ 21:29 by Rossy Doyle NP) Smoking status: Current every day smoker Alcohol intake: unknown Substance use: unknown Living arrangements: with family Gender identity (if verbalized by the patient): Female Comments At time of signature, agree with nursing past medical, surgical, social and family history. There is no relevant family history pertinent to the presenting complaint Exam Narrative: GENERAL: Ill-appearing, well-nourished, and in no acute distress. HEAD: Normocephalic EYES: PERRLA, conjunctivae clear ENT: Nares clear, turbinates edematous and erythematous, clear discharge. Mucous membranes moist. TM pearly segura with dull light reflex bilaterally; no tragal tenderness. Oropharynx erythematous without lesions. Tonsils red enlarged and without exudate, no drooling, no hoarseness, no trismus, uvula midline. NECK: Supple. lymphadenopathy present CHEST: Clear to auscultation, breath sounds equal. No wheezing, rhonchi, rales, or stridor. No respiratory distress, speaks in full sentences.SAO2 98% on room air HEART: Regular rate and rhythm. No murmur heard. SKIN: Warm, dry, no rash. NEURO: Alert and oriented x3. PSYCH: Normal mood and affect Course Course Emergency Course: Patient is aware of diagnosis, understands and agrees to treatment plan.? Anticipatory guidance given.? Patient agrees to follow-up as directed and is aware of reasons to seek care at the emergency department. Portions of this record may have been created with voice recognition software Level of Care: Express Care Visit Vital Signs Vital signs: Vital Signs Temperature 36.3 C L 09/26/24 15:00 Pulse Rate 77 09/26/24 15:00 Respiratory Rate 15 09/26/24 15:00 Blood Pressure 132/68 09/26/24 15:00 Pulse Oximetry 98 09/26/24 15:00 Oxygen Delivery Room Air 09/26/24 15:00 Temperature 36.3 C L 09/26/24 15:00 Pulse Rate 77 09/26/24 15:00 Respiratory Rate 15 09/26/24 15:00 Blood Pressure 132/68 09/26/24 15:00 Pulse Oximetry 98 09/26/24 15:00 Oxygen Delivery Room Air 09/26/24 15:00 Reviewed MDM - URI/Sore Throat MDM Narrative Medical decision making narrative: Differential diagnosis considered: Shelley virus, strep pharyngitis, allergic rhinitis, upper respiratory tract infection, sinusitis, rhinosinusitis, nasopharyngitis. viral pharyngitis, otitis media, otitis externa, pneumonia, bronchitis, viral cough syndrome, viral syndrome, and influenza.? Exam findings show no acute concerns or changes; patient is non-toxic appearing and is in no distress.? Patient is appropriate for outpatient treatment and follow-up. Differential Diagnosis Differential diagnosis: Likely upper respiratory infection, viral infection, influenza, pharyngitis and other (strep pharyngitis, COVID) Medical Records Attestation: I reviewed the patient's medical records. Lab Data Attestation: I reviewed the patient's lab results. Lab results narrative: strep screen positive, influenza A negative, Influenza B negative, Covid antigen negative. Labs: Lab Results 09/26/24 Range/Units 15:12 POC Influenza A Ag Negative (Negative) POC Influenza B Ag Negative (Negative) POC SARS CoV-2 Ag Negative (Negative) POC Grp A Strep Screen Positive (Negative) reviewed Critical Care Time Critical Care Time Critical Care Time: No Discharge Plan Discharge Clinical Impression: Acute streptococcal pharyngitis Patient Disposition: Home, Self-Care Condition: Stable Instructions: Antibiotic Form, Strep Throat (ED) Additional Instructions: You tested positive for Group A strep . Take the entire course of antibiotics. Throw away your current toothbrush and begin using a new toothbrush in 48 hours in order to prevent re-infection. Sanitize all reusable water bottles . Do not share items with others. Salt water gargles may alleviate some of the throat discomfort. You can take tylenol or ibuprofen per the package instructions for pain/fever. You are considered contagious until you have been on oral antibiotics for 24 hours you should not plan on going to visit your daughter until at least Monday If your symptoms persist, change or worsen significantly before you can contact your personal physician then please, without delay, go to the emergency department for further evaluation. Follow-up with PCP in 7-10 days or sooner if needed Follow up with PCP soon in regards to your blood pressure which is elevated above threshold for referral. Blood pressure above 120/80 may indicate pre- hypertension. 132/68 Patient Language: Spanish Prescriptions: New amoxicillin 500 mg capsule 1,000 mg PO Q12H 10 Days Qty: 40 0RF Rx Instructions: Make sure you take all doses of this oral antibiotic ibuprofen 600 mg tablet 600 mg PO TID PRN (Reason: fever or pain) Qty: 20 0RF Follow-up/Referrals: PHYSICIAN,CONCAVING MACHINE OPERATOR [Primary Care Provider] - Time of Disposition: 15:31 Quality [place] Coma Scale Eyes: Open Verbal: Oriented and Alert Motor: Follows Commands [place] Coma Total Score: 15
== END 2024-09-26 15:35 | disposition home or self-care (01) ==
PROVIDERS: Emergency Provider Registered Nurse
DX: J02.0 Streptococcal pharyngitis (principal); Z20.822 Contact with and (suspected) exposure to COVID-19; F17.200 Nicotine dependence, unspecified, uncomplicated
CPT/HCPCS: 87426; 87804; 87880; 99213; G0463

== ENCOUNTER 2025-05-17 16:04 | Emergency (ER) | payer SELFPAY ==
[2025-05-17 16:12] VITALS: BP 116/83; PULSE 75; RESP 16; TEMP 36.8; O2SAT 100
--- NOTE | 2025-05-17 16:42 | ED.GENADULT ---
HPI - General Adult General Chief complaint: Nausea/Vomiting/Diarrhea Stated complaint: Vomiting/Ear Pain Time Seen by Provider: 05/17/25 16:24 Source: patient and RN notes reviewed Mode of arrival: ambulatory Limitations: no limitations History of Present Illness HPI narrative: Patient presents today complaining of vomiting since 2:00 a.m. that lasted until 2:00 p.m. In that time, she vomited approximately 6 day times. Denied abdominal pain, diarrhea, fever. She is not currently nauseated, but needed to call into work tonight and was told by her job she had to be evaluated. She is also complaining of a 2 day history of left ear popping and muffling. Denies pain. No OTC treatment for either complaint prior to arrival. Related Data Allergies Allergy/AdvReac Type Severity Reaction Status Date / Time No Known Allergies Allergy Verified 05/17/25 16:15 [facility] Surgical History Surgical History (Updated 05/17/25 @ 17:30 by Lissette Oliver, [facility], ) H/O tubal ligation History of appendectomy Social History Social History Smoking status: Current every day smoker Alcohol intake: unknown Substance use: unknown Living arrangements: with family Gender identity (if verbalized by the patient): Female Comments At time of signature, I have reviewed and agree with nursing past medical, surgical, social and family history unless otherwise noted. Please see nursing chart for further information. There is no relevant family history pertinent to the presenting complaint Exam Narrative: GENERAL: Well-appearing, well-nourished, and in no acute distress. HEAD: Normocephalic, atraumatic. EYES: EOMI. No redness or drainage. Conjunctivae normal. ENT: Mucous membranes pink and moist. Nares clear. No rhinorrhea. Right TM normal. Left TM occluded with cerumen impaction. See procedure note. Throat normal. Uvula midline. NECK: Normal AROM. CHEST: No respiratory distress. Clear to auscultation. HEART: Regular rate and rhythm. No murmur appreciated. ABDOMEN: Soft, nontender, nondistended, normal active bowel sounds. MUSCULOSKELETAL: No bony tenderness. EXTREMITIES: Normal range of motion. No edema. SKIN: Warm, dry, no rash. Capillary refill normal. Normal skin turgor. NEURO: No focal deficits. Alert and oriented x3. Gait steady. PSYCH: Normal affect. No signs of depression or anxiety. Course Course Level of Care: Express Care Visit Vital Signs Vital signs: Vital Signs Temperature 98.2 F 05/17/25 16:12 Pulse Rate 75 05/17/25 16:12 Respiratory Rate 16 05/17/25 16:12 Blood Pressure 116/83 05/17/25 16:12 Pulse Oximetry 100 05/17/25 16:12 Temperature 98.2 F 05/17/25 16:12 Pulse Rate 75 05/17/25 16:12 Respiratory Rate 16 05/17/25 16:12 Blood Pressure 116/83 05/17/25 16:12 Pulse Oximetry 100 05/17/25 16:12 Reviewed Procedures Ear Wax Removal Left Ear: Ear Wax Removal Date: 05/17/25 Ear Wax Removal Time: 16:42 Cerumenolytic Used: other (water with small amt of peroxide) Results: Re-examined: cerumen removed completely TM Examination: TM(s) intact, normal appearance Ear Canal Exam: atraumatic Patient Tolerated Procedure: well Complications: no problems Technique: ear canal irrigated Medical Decision Making MDM Narrative Medical decision making narrative: 24-year-old female patient presents today complaining of nausea vomiting 12 hours today without diarrhea, abdominal pain, fever. Symptoms have resolved, but patient is requesting a work note because she called in today. She also complains of left ear muffling and popping x2 days without pain. Upon exam, patient's abdominal exam is normal and ENT exam shows left cerumen impaction. After ear irrigation resulted in a large amount of cerumen, patient's left TM is visualized and is normal without signs of infection. Patient's hearing is restored. Prescription for Zofran for nausea sent to pharmacy. Nausea and vomiting likely due to viral source verses food poisoning. Work note provided. Vital signs stable. Respiratory guidance given. Differential Diagnosis Differential Diagnosis: Otitis media, otitis externa, ruptured TM, serous otitis, cerumen impaction, gastroenteritis, food poisoning, GERD, viral syndrome Vital Signs Vital Signs: Vital Signs Temperature 98.2 F 05/17/25 16:12 Pulse Rate 75 05/17/25 16:12 Respiratory Rate 16 05/17/25 16:12 Blood Pressure 116/83 05/17/25 16:12 Pulse Oximetry 100 05/17/25 16:12 Temperature 98.2 F 05/17/25 16:12 Pulse Rate 75 05/17/25 16:12 Respiratory Rate 16 05/17/25 16:12 Blood Pressure 116/83 05/17/25 16:12 Pulse Oximetry 100 05/17/25 16:12 Critical Care Time Critical Care Time Critical Care Time: No Discharge Plan Discharge Clinical Impression: Impacted cerumen of left ear Nausea & vomiting Qualifiers: Vomiting type: unspecified Qualified Code(s): R11.2 - Nausea with vomiting, unspecified Patient Disposition: Home Condition: Stable Instructions: Acute Nausea and Vomiting (ED) Additional Instructions: Please take the Zofran as prescribed for nausea and vomiting. If you continue to tolerate fluids at home, advance to bland foods such as crackers, toast, mashed potatoes. Rest. If you develop worsening symptoms such as fever, severe abdominal pain, or unable to keep down fluids, please go to the ER for further evaluation. Wax was removed from your left ear successfully, and there is no indication of infection. Patient Language: Indonesian Prescriptions: New ondansetron 4 mg tablet,disintegrating 4 mg PO TID PRN (Reason: nausea and vomiting) Qty: 10 0RF Follow-up/Referrals: PHYSICIAN,DIGITAL MARKETING APPRENTICE [Primary Care Provider] - Stand Alone Forms: Work/School Release IP Time of Disposition: 16:45
== END 2025-05-17 16:47 | disposition home or self-care (01) ==
PROVIDERS: Emergency Provider Nurse Practitioner
DX: H61.22 Impacted cerumen, left ear (principal); R11.2 Nausea with vomiting, unspecified; F17.200 Nicotine dependence, unspecified, uncomplicated
CPT/HCPCS: 69209; 99213; G0463